=== PATIENT | female | born 1990 | race Two or more races ===

== ENCOUNTER 2019-04-25 13:30 | Observation (INO) | payer OTHER ==
[~2019-04-25] VITALS: Ht 152.4 cm; Wt 72.6 kg
[2019-04-25] MEDS ORDERED: LACTATED RINGER'S 2,000 ML IV ONE ×2 (14:15→15:00)
[2019-04-25 14:58] LABS: Basophils # (auto) 0 uL; Basophils % (auto) 0.1 % (0.0-2.0); Eosinophils # (auto) 0 uL; Eosinophils % (auto) 0.1 % (0.0-7.0); Hematocrit 37.7 % (36.0-46.0); Hemoglobin 12.6 g/dL (12.2-16.2); Lymphocytes # (auto) 1.5 uL; Lymphocytes % (auto) 8.9 % (10.0-50.0); Mean Corpuscular Hemoglobin 29.7 pg (28.0-32.0); Mean Corpuscular Hgb Conc. 33.4 g/dL (32.0-36.0); Mean Corpuscular Volume 88.8 fL (80.0-100.0); Monocytes % (auto) 5.9 % (0.0-12.0); Neutrophils # (auto) 14.3 uL; Platelet Count (auto) 304 10^3/uL (140-450); Red Blood Cells 4.25 10^6/uL (4.0-5.20); Red Cell Distribution Width 15.9 % (11.8-14.3); White Blood Cell 16.9 10^3/uL (4.4-10.8)
[2019-04-25 15:07] LABS: Urine Bacteria FEW /hpf (None Seen); Urine Blood Negative /uL (Negative); Urine Budding Yeast FEW /hpf (None Seen); Urine Mucus FEW (None Seen); Urine Specific Gravity 1.019 (1.001-1.035); Urine WBC 2 /hpf (0 - 5); Urine WBC Clumps PRESENT /hpf (None Seen)
[2019-04-25 15:13] LABS: Albumin 2.8 g/dL (3.4-5.0); Calcium 8.6 mg/dL (8.5-10.1); Potassium 3.5 mmol/L (3.5-5.1)
[2019-04-25 15:14] LABS: Alcohol, Urine < 3.0 mg/dL (0-5); Amphetamine Screen, Urine NEGATIVE (NEGATIVE); Barbiturate Scree,Urine NEGATIVE (NEGATIVE); Benzodiazephine Screen, Urine NEGATIVE (NEGATIVE); Cannabinoid Screen, Urine NEGATIVE (NEGATIVE); Cocaine Screen, Urine NEGATIVE (NEGATIVE); Opiate Scree,Urine NEGATIVE (NEGATIVE); Phencyclidine Screen, Urine NEGATIVE (NEGATIVE)
[2019-04-25 15:16] LABS: BUN/Creatinine Ratio 13.5
[2019-04-25 15:18] LABS: Bilirubin, Total 0.3 mg/dL (0.2-1.0)
[2019-04-25] MEDS ORDERED: ceFAZolin 1GM/50ML 50 ML IV ONE (15:45)
[2019-04-25] MEDS ORDERED: LACTATED RINGER'S 1,000 ML IV SCH (16:15)
[2019-04-25] MEDS ORDERED: NALBUPHINE HCL 10 MG/1ml INJECTION IV ONE (16:15)
[2019-04-25] MEDS ORDERED: BUTORPHANOL TARTRATE 2 MG/1 ML VIAL IV PRN (16:30)
[2019-04-25] MEDS: LACTATED RINGER'S 1,000 ML IV SCH (18:45)
[2019-04-25] MEDS ORDERED: TERBUTALINE SULFATE 1 MG/ML 1ML VIAL SC ONE (22:18)
[2019-04-25] MEDS: TERBUTALINE SULFATE 1 MG/ML 1ML VIAL SC SCH (22:42)
[2019-04-25] MEDS: ACETAMINOPHEN 325 MG TAB PO PRN (22:55)
[2019-04-25] MEDS: NIFEdipine 10 MG CAP PO SCH (22:56)
[2019-04-26] MEDS: TERBUTALINE SULFATE 1 MG/ML 1ML VIAL SC SCH (01:55)
[2019-04-26] MEDS: LACTATED RINGER'S 1,000 ML IV SCH (02:53)
[2019-04-26] MEDS: NIFEdipine 10 MG CAP PO SCH (02:54)
[2019-04-26] MEDS: ACETAMINOPHEN 325 MG TAB PO PRN ×2 (04:12→08:35)
[2019-04-26] MEDS ORDERED: NIFEdipine 10 MG CAP PO SCH (07:00)
[2019-04-26] MEDS ORDERED: ceFAZolin 1GM/50ML 50 ML IV SCH ×2 (08:00)
== END 2019-04-26 10:25 | disposition home or self-care (01) | DRG 832 ==
LOC: ER 13:30 → LDRP 13:48
PROVIDERS: ADMIT Obstetrics & Gynecology; ATTEND Obstetrics & Gynecology
DX: O23.02 Infections of kidney in pregnancy, second trimester (principal); N12 Tubulo-interstitial nephritis, not specified as acute or chronic; O34.219 Maternal care for unspecified type scar from previous cesarean delivery; Z3A.27 27 weeks gestation of pregnancy
CPT/HCPCS: 36415; 59025; 76700; 76805; 80053; 80307; 81001; 81002; 85025; 87086; 94760; 96365; 96366; 96372; 96375; 99284; G0378; J0595; J0690; J3105; 96374